=== PATIENT | female | born 1980 | race Caucasian/White ===

== ENCOUNTER 2016-11-29 09:57 | Inpatient (IN) | payer MEDICAID, OTHER ==
--- NOTE | 2016-11-29 10:06 | ED ---
General Adult HPI - General Stated complaint: Mental Health Time Seen by Provider: 11/29/16 09:59 Source: patient, police, EMS, RN notes reviewed Mode of arrival: EMS Limitations: no limitations - History of Present Illness Initial comments: Patient is a pleasant 36-year-old female presenting to the emergency department with depression. Patient states she did recently have suicidal ideation however no longer does. Patient does admit to stating these thoughts to another person. Patient denies homicidal thoughts. Patient had 2 shots of alcohol this morning. No drug use other than marijuana. No hallucinations. No physical complaints. Patient does have a history of previous suicide attempt. - Related Data Home Medications Medication Instructions Recorded Confirmed ALPRAZolam [Xanax] 1 mg PO BID 11/29/16 11/29/16 Aclidinium [place] [Tudorza 1 puff PO RT-BID 11/29/16 11/29/16 Pressair] Albuterol Inhaler [Ventolin Hfa 2 puff INHALATION RT-Q4H PRN 11/29/16 11/29/16 Inhaler] Buta/APAP/Caf/Cod [id number] 1 cap PO QID PRN 11/29/16 11/29/16 [Fioricet w/Cod 77-076-67-30MG] Escitalopram Oxalate [Lexapro] 20 mg PO DAILY 11/29/16 11/29/16 SUMAtriptan SUCCINATE [Imitrex] 100 mg PO DAILY PRN 11/29/16 11/29/16 Previous Rx's Medication Instructions Recorded traZODone HCL 100 mg PO HS #30 tab 09/04/13 Allergies Allergy/AdvReac Type Severity Reaction Status Date / Time Sulfa (Sulfonamide Allergy Anaphylaxis Verified 11/29/16 12:23 Antibiotics) Blueberries Allergy Unknown Unknown Uncoded 09/02/13 15:17 Review of Systems ROS Statement: Those systems with pertinent positive or pertinent negative responses have been documented in the HPI. ROS Other: All systems not noted in ROS Statement are negative. Constitutional: Denies: fever Eyes: Denies: eye pain ENT: Denies: ear pain Respiratory: Denies: cough Cardiovascular: Denies: chest pain Endocrine: Denies: fatigue Gastrointestinal: Denies: abdominal pain Genitourinary: Denies: dysuria Musculoskeletal: Denies: back pain Skin: Denies: rash Neurological: Denies: headache Psychiatric: Reports: depression Past Medical History Past Medical History: Cancer, COPD Additional Past Medical History / Comment(s): Migraines, chronic back pain. Cervical and ovarian CA 8 years ago, had cryo surgery did not have chemotherapy. History of Any Multi-Drug Resistant Organisms: None Reported Past Surgical History: Orthopedic Surgery Additional Past Surgical History / Comment(s): D&C. Had to have left ankle re- set. Past Anesthesia/Blood Transfusion Reactions: No Reported Reaction Past Psychological History: Anxiety, Depression, PTSD Smoking Status: Current every day smoker Past Alcohol Use History: Occasional Past Drug Use History: Marijuana Additional Drug Use History / Comment(s): However, pt states she buys 'zanies' from friends. - Past Family History Mother Family Medical History: Asthma, Coronary Artery Disease (CAD), Hypertension, Rheumatoid Arthritis (RA) Additional Family Medical History / Comment(s): gout, depression and anxiety. Father Family Medical History: Coronary Artery Disease (CAD), Diabetes Mellitus, Hypertension Additional Family Medical History / Comment(s): Hepatitis C from a blood transfusion. General Exam Limitations: no limitations General appearance: alert, in no apparent distress Head exam: Present: atraumatic Eye exam: Present: normal appearance, PERRL ENT exam: Present: normal oropharynx Neck exam: Present: normal inspection Respiratory exam: Present: normal lung sounds bilaterally Cardiovascular Exam: Present: regular rate, normal rhythm GI/Abdominal exam: Present: soft. Absent: tenderness Extremities exam: Present: normal inspection Neurological exam: Present: alert Psychiatric exam: Present: depressed Skin exam: Present: normal color Course Vital Signs 11/29/16 10:10 Temperature 98.2 F Pulse Rate 118 H Respiratory 20 Rate Blood Pressure 160/90 O2 Sat by Pulse 99 Oximetry Medical Decision Making - Medical Decision Making Patient seen by mental health services, who will admit. - Lab Data Lab Results 11/29/16 11/29/16 Range/Units 10:21 10:21 Urine HCG, Qual Not Detected (Not Detectd) Urine Opiates Screen Detected H (NotDetected) Ur Oxycodone Screen Not Detected (NotDetected) Urine Methadone Screen Not Detected (NotDetected) Ur Propoxyphene Screen Not Detected (NotDetected) Ur Barbiturates Screen Detected H (NotDetected) U Tricyclic Antidepress Not Detected (NotDetected) Ur Phencyclidine Scrn Not Detected (NotDetected) Ur Amphetamines Screen Not Detected (NotDetected) U Methamphetamines Scrn Not Detected (NotDetected) U Benzodiazepines Scrn Not Detected (NotDetected) Urine Cocaine Screen Not Detected (NotDetected) U Marijuana (THC) Screen Detected H (NotDetected) Disposition Clinical Impression: Depression Disposition: TRANSFER TO PSYCH HOSP/UNIT Referrals: None,Stated [Primary Care Provider] - 1-2 days Decision Time: 12:51
[2016-11-29] MEDS ORDERED: ACETAMINOPHEN TAB 500 MG TAB PO STA (13:32)
[2016-11-29] MEDS ORDERED: MAGNESIUM HYDROXIDE 2,400 MG/10 ML CUP PO PRN (14:27)
[2016-11-29] MEDS ORDERED: MAG HYDROX/AL HYDROX/SIMETH 30 ML CUP PO PRN (14:27)
[2016-11-29] MEDS ORDERED: ACETAMINOPHEN TAB 325 MG TAB PO PRN (14:27)
[2016-11-29] MEDS: NICOTINE 14MG/24HR PATCH TRANSDERM SCH (15:15)
[2016-11-29] MEDS: SUMAtriptan SUCCINATE 50 MG TAB PO PRN (15:39)
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
[2016-11-29] MEDS: ALBUTEROL INHALER 60 PUFF/8 GM INHALER INHALATION PRN ×2 (17:08→21:07)
[2016-11-29] MEDS: TIOTROPIUM 18 MCG/PUFF INHALER INHALATION SCH (17:08)
[2016-11-29] MEDS ORDERED: ALPRAZolam 0.5 MG TAB PO SCH (21:00)
[2016-11-29] MEDS ORDERED: traZODone HCL 100 MG TAB PO SCH (21:00)
[2016-11-29] MEDS: PRAZOSIN 1 MG CAP PO SCH (21:11)
[2016-11-29] MEDS: ESCITALOPRAM 20 MG TAB PO SCH (21:11)
[2016-11-30 06:38] VITALS: RESP 16
[2016-11-30] MEDS ORDERED: ESCITALOPRAM 20 MG TAB PO SCH (09:00)
[2016-11-30] MEDS: TIOTROPIUM 18 MCG/PUFF INHALER INHALATION SCH (09:32)
[2016-11-30] MEDS: ALBUTEROL INHALER 60 PUFF/8 GM INHALER INHALATION PRN ×4 (09:32→21:05)
[2016-11-30 09:40] LABS: Basophils # (A) 0.1 k/uL (0-0.2); Basophils % (A) 1 %; CHCM 34.4; Eosinophils # (A) 0.1 k/uL (0-0.7); Eosinophils % (A) 1 %; HCT 45.5 % (34.0-46.0); HDW 2.29; Luc # (Auto) 0.11; Luc % (Auto) 1; Lymphocytes % (A) 20 %; MCH 33.8 pg (25.0-35.0); MCHC 33.1 g/dL (31.0-37.0); MCV 102.3 fL (80.0-100.0); Macrocytosis Slight; Mean Platelet Volume 7.7; Monocytes # (A) 0.4 k/uL (0-1.0); Monocytes % (A) 4 %; Neutrophils # (A) 7.2 k/uL (1.3-7.7); Neutrophils % (A) 73 %; RBC 4.45 m/uL (3.80-5.40); WBC 9.9 k/uL (3.8-10.6); WBC (Perox) 10.03
[2016-11-30] MEDS: NICOTINE 14MG/24HR PATCH TRANSDERM SCH (09:43)
[2016-11-30 09:46] LABS: ALT 30 U/L (9-52); AST 23 U/L (14-36); Alkaline Phosphatase 73 U/L (38-126); Anion Gap 12 mmol/L; Blood Urea Nitrogen 6 mg/dL (7-17); Calcium 9.8 mg/dL (8.4-10.2); Carbon Dioxide 22 mmol/L (22-30); Chloride 108 mmol/L (98-107); Glucose 120 mg/dL (74-99); Non-African American GFR(MDRD) >60 (>60 ml/min/1.73 sqM); Potassium 3.9 mmol/L (3.5-5.1); Sodium 142 mmol/L (137-145); Total Bilirubin 0.8 mg/dL (0.2-1.3); Total Protein 8.2 g/dL (6.3-8.2)
[2016-11-30] MEDS: ARIPiprazole 2 MG TAB PO SCH (10:10)
[2016-11-30] MEDS: SUMAtriptan SUCCINATE 50 MG TAB PO PRN (10:11)
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
--- NOTE | 2016-11-30 13:58 | P.CONS ---
History of Present Illness - Reason for Consult Medical clearance. - History of Present Illness Patient is a pleasant 36-year-old female admitted to psychiatric floor for depression and suicidal ideation. Patient is a smoker and is comparing of cough without any sputum production patient denied any fever, chills, nausea, vomiting, abdominal pain, dysuria medicine was consulted for medical clearance. Patient is medical be stable at this time. Review of Systems REVIEW OF SYSTEMS: CONSTITUTIONAL: No fever, no malaise, no fatigue. HEENT: No recent visual problems or hearing problems. Denied any sore throat. CARDIOVASCULAR: No chest pain, orthopnea, PND, no palpitations, no syncope. PULMONARY: No shortness of breath, no cough, no hemoptysis. GASTROINTESTINAL: No diarrhea, no nausea, no vomiting, no abdominal pain. Normoactive bowel sounds. NEUROLOGICAL: No headaches, no weakness, no numbness. HEMATOLOGICAL: Denies any bleeding or petechiae. GENITOURINARY: Denies any burning micturition, frequency, or urgency. MUSCULOSKELETAL/RHEUMATOLOGICAL: Denies any joint pain, swelling, or any muscle pain. ENDOCRINE: Denies any polyuria or polydipsia. The rest of the 14-point review of systems is negative. Past Medical History Past Medical History: Cancer, COPD Additional Past Medical History / Comment(s): Migraines, chronic back pain. Cervical and ovarian CA 8 years ago, had cryo surgery did not have chemotherapy. History of Any Multi-Drug Resistant Organisms: None Reported Past Surgical History: Orthopedic Surgery Additional Past Surgical History / Comment(s): D&C. Had to have left ankle re- set. Past Anesthesia/Blood Transfusion Reactions: No Reported Reaction Past Psychological History: Anxiety, Depression, PTSD Smoking Status: Current every day smoker Past Alcohol Use History: Occasional Past Drug Use History: Marijuana Additional Drug Use History / Comment(s): However, pt states she buys 'zanies' from friends. - Past Family History Mother Family Medical History: Asthma, Coronary Artery Disease (CAD), Hypertension, Rheumatoid Arthritis (RA) Additional Family Medical History / Comment(s): gout, depression and anxiety. Father Family Medical History: Coronary Artery Disease (CAD), Diabetes Mellitus, Hypertension Additional Family Medical History / Comment(s): Hepatitis C from a blood transfusion. Medications and Allergies Home Medications Medication Instructions Recorded Confirmed Type traZODone HCL 100 mg PO HS #30 tab 09/04/13 11/29/16 Rx ALPRAZolam [Xanax] 1 mg PO BID 11/29/16 11/29/16 History Aclidinium [place] [Tudorza 1 puff PO RT-BID 11/29/16 11/29/16 History Pressair] Albuterol Inhaler [Ventolin Hfa 2 puff INHALATION RT-Q4H PRN 11/29/16 11/29/16 History Inhaler] Buta/APAP/Caf/Cod 41-809-96-30 1 cap PO QID PRN 11/29/16 11/29/16 History [Fioricet w/Cod 06-430-18-30MG] Escitalopram Oxalate [Lexapro] 20 mg PO DAILY 11/29/16 11/29/16 History SUMAtriptan SUCCINATE [Imitrex] 100 mg PO DAILY PRN 11/29/16 11/29/16 History Allergies Allergy/AdvReac Type Severity Reaction Status Date / Time Sulfa (Sulfonamide Allergy Anaphylaxis Verified 11/29/16 12:23 Antibiotics) Blueberries Allergy Unknown Unknown Uncoded 09/02/13 15:17 Physical Exam Vitals: Vital Signs Temp Pulse Resp BP Pulse Ox 11/30/16 06:37 98.1 F 100 16 149/80 11/29/16 14:39 98.3 F 94 15 137/80 99 PHYSICAL EXAMINATION: GENERAL: The patient is alert and oriented x3, not in any acute distress. Well developed, well nourished. HEENT: Pupils are round and equally reacting to light. EOMI. No scleral icterus. No conjunctival pallor. Normocephalic, atraumatic. No pharyngeal erythema. No thyromegaly. CARDIOVASCULAR: S1 and S2 present. No murmurs, rubs, or gallops. PULMONARY: Chest is clear to auscultation, no wheezing or crackles. ABDOMEN: Soft, nontender, nondistended, normoactive bowel sounds. No palpable organomegaly. MUSCULOSKELETAL: No joint swelling or deformity. EXTREMITIES: No cyanosis, clubbing, or pedal edema. NEUROLOGICAL: Gross neurological examination did not reveal any focal deficits. SKIN: No rashes. Results CBC & Chem 7: 11/30/16 09:07 11/30/16 09:07 Labs: Abnormal Lab Results - Last 24 Hours (Table) 11/30/16 11/30/16 Range/Units 09:07 09:07 MCV 102.3 H (80.0-100.0) fL Chloride 108 H (98-107) mmol/L BUN 6 L (7-17) mg/dL Glucose 120 H (74-99) mg/dL Assessment and Plan Plan: #1 cough without any sputum production: Secondary to smoking I do not believe patient has and Bactrim bronchitis and antibiotics are necessary at this point of time. Smoking cessation counseling was provided #2 nicotine abuse next and #3 marijuana use: Counseling was provided #4 severe depression and suicidal ideation management as per primary service Thank you for letting me participate in this patient's care no further recommendations from medicine perspective will follow the patient on as-needed basis
[2016-11-30] MEDS: PRAZOSIN 1 MG CAP PO SCH (20:39)
[2016-11-30] MEDS: ESCITALOPRAM 20 MG TAB PO SCH (20:40)
[2016-12-01 06:09] VITALS: BP 130/78; PULSE 75; TEMP 98.2
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
[2016-12-01] MEDS: NICOTINE 14MG/24HR PATCH TRANSDERM SCH (09:22)
[2016-12-01] MEDS: ARIPiprazole 2 MG TAB PO SCH (09:22)
[2016-12-01] MEDS: ALBUTEROL INHALER 60 PUFF/8 GM INHALER INHALATION PRN (09:27)
[2016-12-01] MEDS: TIOTROPIUM 18 MCG/PUFF INHALER INHALATION SCH (09:27)
== END 2016-12-01 09:40 | disposition home or self-care (01) | DRG 885 ==
LOC: EC 09:57 → 3MHU 13:18
PROVIDERS: ADMIT Psychiatry & Neurology Psychiatry; ATTEND Psychiatry & Neurology Psychiatry
DX: F31.81 Bipolar II disorder (principal); R45.851 Suicidal ideations; J44.9 Chronic obstructive pulmonary disease, unspecified; F40.01 Agoraphobia with panic disorder; F17.200 Nicotine dependence, unspecified, uncomplicated; F12.90 Cannabis use, unspecified, uncomplicated; F43.10 Post-traumatic stress disorder, unspecified; G43.909 Migraine, unspecified, not intractable, without status migrainosus; Z62.810 Personal history of physical and sexual abuse in childhood; Z79.899 Other long term (current) drug therapy; Z81.8 Family history of other mental and behavioral disorders; Z82.49 Family history of ischemic heart disease and other diseases of the circulatory system; Z82.5 Family history of asthma and other chronic lower respiratory diseases; Z83.3 Family history of diabetes mellitus; Z85.43 Personal history of malignant neoplasm of ovary; Z91.410 Personal history of adult physical and sexual abuse; Z91.5 Personal history of self-harm; F51.5 Nightmare disorder; M54.9 Dorsalgia, unspecified; G89.29 Other chronic pain
CPT/HCPCS: 80053; 80306; 81025; 82075; 84443; 85025; 94640; 99285

== ENCOUNTER → 2018-01-11 | Outpatient (CLI) | payer OTHER ==
--- NOTE | 2018-01-12 09:30 | MM ---
Reason for exam: screening (asymptomatic). Baseline mammogram. History: Patient is nulliparous. Family history of breast cancer in maternal grandmother at age 45, breast cancer in paternal grandmother at age 45, and breast cancer in 2 maternal aunts at age 45. Took hormonal contraceptives for 2 years. Physical Findings: Nurse did not find any significant physical abnormalities on exam. MG 3D Screening Mammo W/Cad Bilateral CC and MLO view(s) were taken. The breast tissue is heterogeneously dense. This may lower the sensitivity of mammography. No suspicious calcifications are seen. There is no discrete abnormality. These results were verbally communicated with the patient and result sheet given to the patient on 01/11/18. ASSESSMENT: Negative, BI-RAD 1 RECOMMENDATION: Routine screening mammogram of both breasts in 1 year.
== END ==
LOC: RADMAMWWP 08:00
PROVIDERS: ATTEND Family Medicine
DX: Z12.31 Encounter for screening mammogram for malignant neoplasm of breast (principal)
CPT/HCPCS: 77063; 77067

== ENCOUNTER 2018-10-26 14:39 | Emergency (ER) | payer OTHER ==
[2018-10-26] MEDS ORDERED: LIDOCAINE 1% INJ 10MG/ML (20 ML MDV) SQ ONE (14:53)
[2018-10-26 14:54] VITALS: BP 130/84; RESP 18; TEMP 97.8
--- NOTE | 2018-10-26 15:08 | ED ---
Wound/Laceration HPI - General Chief Complaint: Wound/Laceration Stated Complaint: hand wrist laceration Time Seen by Provider: 10/26/18 14:51 Source: patient Mode of arrival: ambulatory - History of Present Illness Initial Comments: 38-year-old female who denies significant past medical history presenting today for chief complaint of right wrist laceration. Patient states she was attempting to close a window when her hand slipped pushing on the glass and her hand went through. She states that she has a laceration of the right wrist just proximal to the thumb base. Patient states there is a large amount of bleeding and she got a laceration many sutures and presents emergency department for evaluation. Patient states there is mostly large tonsil class denies small pie wander. Patient states she had a very tiny laceration from the glass at the tip of the right index finger. Patient denies any other areas of injury. Patient sates her tetanus up-to-date. Patient states she has no numbness tingling loss sensation, coolness or pallor of the extremity. - Related Data Home Medications Medication Instructions Recorded Confirmed Aclidinium [place] [Tudorza 1 puff PO RT-BID 11/29/16 11/29/16 Pressair] Albuterol Inhaler [Ventolin Hfa 2 puff INHALATION RT-Q4H PRN 11/29/16 11/29/16 Inhaler] Buta/APAP/Caf/Cod [id number] 1 cap PO QID PRN 11/29/16 11/29/16 [Fioricet w/Cod 33-658-88-30MG] SUMAtriptan SUCCINATE [Imitrex] 100 mg PO DAILY PRN 11/29/16 11/29/16 Previous Rx's Medication Instructions Recorded ARIPiprazole [Abilify] 0.5 mg PO DAILY #10 tab 12/01/16 Escitalopram Oxalate [Lexapro] 20 mg PO DAILY #14 12/01/16 Prazosin [Minipress] 1 mg PO HS #14 cap 12/01/16 Allergies Allergy/AdvReac Type Severity Reaction Status Date / Time Sulfa (Sulfonamide Allergy Anaphylaxis Verified 11/29/16 12:23 Antibiotics) Blueberries Allergy Unknown Unknown Uncoded 09/02/13 15:17 Review of Systems ROS Statement: Those systems with pertinent positive or pertinent negative responses have been documented in the HPI. ROS Other: All systems not noted in ROS Statement are negative. Past Medical History Past Medical History: Cancer, COPD Additional Past Medical History / Comment(s): Migraines, chronic back pain. Cervical and ovarian CA 8 years ago, had cryo surgery did not have chemotherapy. History of Any Multi-Drug Resistant Organisms: None Reported Past Surgical History: Orthopedic Surgery Additional Past Surgical History / Comment(s): D&C. Had to have left ankle re- set. Past Anesthesia/Blood Transfusion Reactions: No Reported Reaction Past Psychological History: Anxiety, Depression, PTSD Smoking Status: Current every day smoker Past Alcohol Use History: Occasional Past Drug Use History: Marijuana - Past Family History Mother Family Medical History: Asthma, Coronary Artery Disease (CAD), Hypertension, Rheumatoid Arthritis (RA) Additional Family Medical History / Comment(s): gout, depression and anxiety. Father Family Medical History: Coronary Artery Disease (CAD), Diabetes Mellitus, Hypertension Additional Family Medical History / Comment(s): Hepatitis C from a blood transfusion. General Exam - General Exam Comments Initial Comments: General: The patient is awake and alert, in no distress, and does not appear acutely ill. Eye: Pupils are equal, round and reactive to light, extra-ocular movements are intact. No nystagmus. There is normal conjunctiva bilaterally. No signs of icterus. Cardiovascular: There is a regular rate and rhythm. No murmur, rub or gallop is appreciated. Respiratory: Lungs are clear to auscultation, respirations are non-labored, breath sounds are equal. No wheezes, stridor, rales, or rhonchi. Musculoskeletal: Normal ROM, no tenderness. Strength 5/5. Sensation intact. Radial pulses equal bilaterally 2+. Neurological: A&O x 3. CN II-XII intact, There are no obvious motor or sensory deficits. Coordination appears grossly intact. Speech is normal. Skin: Skin is warm and dry and no rashes. 3 cm laceration of the proximal thenar eminence, skin flap. no evidence of FB. No evidence of exposed tendon. actively bleeding. Full range of motion at the MTP DIP PIP joints of all 5 digits of the hands bilaterally. Full sensation proximal distal to injury site. Capillary refill less than 3 seconds of the affected digit. Psychiatric: Cooperative, appropriate mood & affect, normal judgment. Course Vital Signs 10/26/18 10/26/18 14:51 16:48 Temperature 97.8 F Pulse Rate 118 H 94 Respiratory 18 18 Rate Blood Pressure 130/84 O2 Sat by Pulse 98 98 Oximetry Procedures - Laceration Laceration #1 Consent Obtained: verbal consent Indication: laceration Site: hand Size (cm): 3 Description: flap, irregular Depth: simple, single layer Anesthetic Used: lidocaine 1% Anesthesia Technique: local infiltration Amount (mls): 3 Pre-repair: wound explored, irrigated extensively, deep structures intact Type of Sutures: nylon Size of Sutures: 4-0 Number of Sutures: 5 Technique: simple, interrupted Patient Tolerated Procedure: well, no complications Medical Decision Making - Medical Decision Making 38-year-old female presenting for hand laceration. Imaging studies reveal no evidence of foreign body no obvious foreign body of physical examination. Patient states her tetanus is up-to-date. Active bleeding on arrival. Once bleeding controlled with pressure. Wound irrigated, wound edges approximated. Patient tolerated procedure well. Patient neurovascularly intact both prior to and after procedure. Bleeding remaining controlled. At this time feel patient stiff discharge with return parameters for suture removal and signs of infection. Patient verbalized understanding and was discharged appearing well Disposition Clinical Impression: Hand laceration Disposition: HOME SELF-CARE Condition: Good Instructions (If sedation given, give patient instructions): Care For Your Stitches (ED), Laceration (ED) Additional Instructions: Please use medication as discussed. Please follow-up for suture removal in 7-10 days. Please return to emergency room if the symptoms increase or worsen or for any other concerns. Is patient prescribed a controlled substance at d/c from ED?: No Referrals: Juancarlos Hansen MD [Primary Care Provider] - 1-2 days Time of Disposition: 16:41
--- NOTE | 2018-10-26 15:21 | XR ---
EXAMINATION TYPE: XR hand complete RT DATE OF EXAM: 10/26/2018 COMPARISON: NONE HISTORY: Laceration near 1st metacarpal TECHNIQUE: Three views are submitted. FINDINGS: The osseous structures are intact. The joint spaces are preserved and there is no acute fracture or dislocation. No radiopaque foreign body identified. IMPRESSION: 1. No definite acute fracture or dislocation if symptoms persist, follow-up study in 7 to 10 days wo uld be suggested
[2018-10-26 16:49] VITALS: PULSE 94
== END 2018-10-26 16:49 | disposition home or self-care (01) ==
LOC: EC 14:39
DX: S61.411A Laceration without foreign body of right hand, initial encounter (principal); J44.9 Chronic obstructive pulmonary disease, unspecified; F17.200 Nicotine dependence, unspecified, uncomplicated; Z88.2 Allergy status to sulfonamides; Z91.018 Allergy to other foods; Z79.899 Other long term (current) drug therapy; Z85.41 Personal history of malignant neoplasm of cervix uteri; Z85.43 Personal history of malignant neoplasm of ovary; Z98.890 Other specified postprocedural states; W25.XXXA Contact with sharp glass, initial encounter; Y93.89 Activity, other specified
CPT/HCPCS: 73130; 99283; 12002; J2001

== ENCOUNTER → 2022-11-22 | Outpatient (CLI) | payer OTHER ==
--- NOTE | 2022-11-23 22:24 | MM ---
Reason for Exam: Screening (asymptomatic). Last mammogram was performed 4 year(s) and 11 month(s) ago. Patient History: Menarche at age 9. Patient has no children. Patient used Hormonal Contraceptives for 2 years. Paternal grandmother had breast cancer, age 45. Maternal grandmother had breast cancer, age 45. Maternal aunt had breast cancer, age 45. Maternal aunt had breast cancer, age 45. Risk Values: Zakia 5 year model risk: 0.8%. NCI Lifetime model risk: 11.9%. Prior Study Comparison: 01/11/2018 Bilateral Screening Mammogram, [facility]. Tissue Density: There are scattered fibroglandular densities. Findings: Analyzed By CAD. Unchanged bilateral asymmetric densities. There is no suspicious group of microcalcifications or new suspicious mass in either breast. Overall Assessment: Benign, BI-RAD 2 Management: Screening Mammogram of both breasts in 1 year. . Patient should continue monthly self-breast exams. A clinical breast exam by your physician is recommended on an annual basis. This exam should not preclude additional follow-up of suspicious palpable abnormalities. Note on Zakia scores and lifetime risk: 1. A Zakia score greater than 3% is considered moderate risk. If this is the case, consider specialist referral to assess eligibility for a risk reducing agent. 2. If overall lifetime risk for the development of breast cancer is 20% or higher, the patient may qualify for future screening with alternating mammogram and breast MRI. Electronically signed and approved by: Quinton Ashton M.D. Radiologist
== END | disposition home or self-care (01) ==
LOC: RADMAMWWP 14:52
PROVIDERS: ATTEND Family Medicine
DX: Z12.31 Encounter for screening mammogram for malignant neoplasm of breast (principal); Z80.3 Family history of malignant neoplasm of breast
CPT/HCPCS: 77067

== ENCOUNTER → 2023-12-22 | Outpatient (CLI) | payer OTHER ==
--- NOTE | 2023-12-26 08:45 | MM ---
Reason for Exam: Screening (asymptomatic). Last mammogram was performed 1 year(s) and 1 month(s) ago. Patient History: Menarche at age 9. Patient has no children. Patient used Hormonal Contraceptives for 2 years. Paternal grandmother had breast cancer, age 45. Maternal grandmother had breast cancer, age 45. Maternal aunt had breast cancer, age 45. Maternal aunt had breast cancer, age 45. Risk Values: Zakia 5 year model risk: 0.9%. NCI Lifetime model risk: 11.8%. Prior Study Comparison: 01/11/2018 Bilateral Screening Mammogram, [facility]. 11/22/2022 Bilateral MG screening mammo w CAD, [facility]. Tissue Density: There are scattered areas of fibroglandular density. Findings: Analyzed By CAD. Right breast: There is no suspicious group of microcalcifications or new suspicious mass. Left breast: There is no suspicious group of microcalcifications or new suspicious mass. Overall Assessment: Negative, BI-RAD 1 Management: Screening Mammogram of both breasts in [address] [facility] will attempt to contact patient to return for supplemental views and ultrasound if indicated. Patient should continue monthly self-breast exams. A clinical breast exam by your physician is recommended on an annual basis. This exam should not preclude additional follow-up of suspicious palpable abnormalities. Note on Zakia scores and lifetime risk: 1. A Zakia score greater than 3% is considered moderate risk. If this is the case, consider specialist referral to assess eligibility for a risk reducing agent. 2. If overall lifetime risk for the development of breast cancer is 20% or higher, the patient may qualify for future screening with alternating mammogram and breast MRI. [facility], , 12/26/2023 8:42 AM. Electronically signed and approved by: Kwasi Tracy DO
== END | disposition home or self-care (01) ==
LOC: RADMAMWWP 15:32
PROVIDERS: ATTEND Family Medicine
DX: Z80.3 Family history of malignant neoplasm of breast
CPT/HCPCS: 77067

== ENCOUNTER 2024-10-11 01:13 | Emergency (ER) | payer OTHER ==
--- NOTE | 2024-10-11 01:56 | ED ---
General Adult HPI - General Chief complaint: Extremity Injury, Upper Stated complaint: Pain in Hands Time Seen by Provider: 10/11/24 01:55 Source: patient, RN notes reviewed Mode of arrival: ambulatory Limitations: no limitations - History of Present Illness Initial comments: 44-year-old female presented to the ER for evaluation of right fingertip discoloration. Patient reports yesterday she started experiencing a prickly/tingling discomfort to her right fingertips. She states throughout the day this progressively worsened into her hand. She also notes dark discoloration to fingertips starting today along with increase of pain and more proximally spreading tingling sensation. She does report today she also started experiencing a similar tingling/prickling sensation to her left fingertips. She denies any injuries or traumas to bilateral upper extremities no neck pain. She denies a history of DVTs and is not currently on any blood thinning medications. Patient does smoke marijuana. Nondiabetic. Patient reports painful range of motion. She denies any fevers or chills. - Related Data Home Medications Medication Instructions Recorded Confirmed Aclidinium [place] [Tudorza 1 puff PO RT-BID 11/29/16 11/29/16 Pressair] Albuterol Inhaler [Ventolin Hfa 2 puff INHALATION RT-Q4H PRN 11/29/16 11/29/16 Inhaler] Buta/APAP/Caf/Cod [id number] 1 cap PO QID PRN 11/29/16 11/29/16 [Fioricet w/Cod [id number]] SUMAtriptan succinate [Imitrex] 100 mg PO DAILY PRN 11/29/16 11/29/16 Previous Rx's Medication Instructions Recorded ARIPiprazole [Abilify] 0.5 mg PO DAILY #10 tab 12/01/16 Escitalopram Oxalate [Lexapro] 20 mg PO DAILY #14 12/01/16 Prazosin [Minipress] 1 mg PO HS #14 cap 12/01/16 Allergies Allergy/AdvReac Type Severity Reaction Status Date / Time Sulfa (Sulfonamide Allergy Anaphylaxis Verified 11/29/16 12:23 Antibiotics) Blueberries Allergy Unknown Unknown Uncoded 09/02/13 15:17 Review of Systems ROS Statement: Those systems with pertinent positive or pertinent negative responses have been documented in the HPI. ROS Other: All systems not noted in ROS Statement are negative. Past Medical History Past Medical History: Cancer, COPD Additional Past Medical History / Comment(s): Migraines, chronic back pain. Cervical and ovarian CA 8 years ago, had cryo surgery did not have chemotherapy. History of Any Multi-Drug Resistant Organisms: None Reported Past Surgical History: Orthopedic Surgery Additional Past Surgical History / Comment(s): D&C. Had to have left ankle re- set. Past Anesthesia/Blood Transfusion Reactions: No Reported Reaction Past Psychological History: Anxiety, Depression, PTSD Smoking Status: Former smoker Past Alcohol Use History: Occasional Past Drug Use History: Marijuana - Past Family History Mother Family Medical History: Asthma, Coronary Artery Disease (CAD), Hypertension, Rheumatoid Arthritis (RA) Additional Family Medical History / Comment(s): gout, depression and anxiety. Father Family Medical History: Coronary Artery Disease (CAD), Diabetes Mellitus, Hypertension Additional Family Medical History / Comment(s): Hepatitis C from a blood transfusion. General Exam Limitations: no limitations General appearance: alert, in no apparent distress Neck exam: Present: normal inspection. Absent: tenderness, meningismus, lymphadenopathy Respiratory exam: Present: normal lung sounds bilaterally. Absent: respiratory distress, wheezes, rales, rhonchi, stridor Cardiovascular Exam: Present: regular rate, normal rhythm, normal heart sounds. Absent: systolic murmur, diastolic murmur, rubs, gallop, clicks Extremities exam: Present: tenderness (Tenderness to finger pads. Right 4th and 1st digits are cool to touch. There is a dark purple discoloration to right finger pads most prominent in right fourth digit. Sluggish cap refill to right fourth digit. Limited with full active range of motion given pain. Left finger pads mildly erythema), other (2+ bilateral radial pulses. Contusion right anterior forearm) Neurological exam: Present: alert, oriented X3, CN II-XII intact Skin exam: Present: warm, dry, intact, normal color. Absent: rash Course Vital Signs 10/11/24 10/11/24 01:22 03:51 Temperature 97.5 F L 97.7 F Pulse Rate 89 80 Respiratory 16 17 Rate Blood Pressure 130/91 125/79 O2 Sat by Pulse 97 98 Oximetry EKG Findings - EKG Comments: EKG Findings:: EKG taken at 2: 16 showing a sinus rhythm with occasional PVC. No ST segment elevations. Ventricular rate 75, NE interval 182, QRS duration 77, QT/QTc 360/388. Medical Decision Making - Medical Decision Making Was pt. sent in by a medical professional or institution (, PA, [facility]NA[facility], urgent care, hospital, or long-term...) When possible be specific @ -No Did you speak to anyone other than the patient for history (EMS, parent, family, police, friend...)? What history was obtained from this source @ -No Did you review nursing and triage notes (agree or disagree)? Why? @ -I reviewed and agree with nursing and triage notes Were old charts reviewed (outside hosp., previous admission, EMS record, old EKG, old radiological studies, urgent care reports/EKG's, long-term records)? Report findings @ -No old charts were reviewed Differential Diagnosis (chest pain, altered mental status, abdominal pain women, abdominal pain men, vaginal bleeding, weakness, fever, dyspnea, syncope, headache, dizziness, GI bleed, back pain, seizure, CVA, palpatations, mental health, musculoskeletal)? @ -Differential Musculoskeletal: Muscular strain, contusion, ligament sprain, fracture, arthritis, septic arthritis, bursitis, cellulitis, muscle spasm, nerve compression, DVT, arterial occlusion, herpes zoster, electrolyte abnormality, tumor.... This is not meant to be in all inclusive list EKG interpreted by me (3pts min.). @ -As above X-rays interpreted by me (1pt min.). @ -None done CT interpreted by me (1pt min.). @ -None done U/S interpreted by me (1pt. min.). @ -None done What testing was considered but not performed or refused? (CT, X-rays, U/S, labs)? Why? @ -None What meds were considered but not given or refused? Why? @ -None Did you discuss the management of the patient with other professionals (professionals i.e. , [employer], [facility], lab, RT, psych nurse, social media analyst, scan coordinator, teacher, tax revenue officer, correctional case manager)? Give summary @ -No Was smoking cessation discussed for >3mins.? @ -I discussed smoking cessation for greater than 3 minutes. The risk of smoking were discussed with the patient including but not limited to risks of cancer, stroke, coronary artery disease and COPD. Also discussed with patient were multiple methods of quitting smoking. Lastly we discussed the financial cost of smoking. Was critical care preformed (if so, how long)? @ -No Were there social determinants of health that impacted care today? How? (Homelessness, low income, unemployed, alcoholism, drug addiction, transportation, low edu. Level, literacy, decrease access to med. care, group home, rehab)? @ -No Was there de-escalation of care discussed even if they declined (Discuss DNR or withdrawal of care, Hospice)? DNR status @ -No What co-morbidities impacted this encounter? (DM, HTN, Smoking, COPD, CAD, Cancer, CVA, ARF, Chemo, Hep., AIDS, mental health diagnosis, sleep apnea, morbid obesity)? @ -None Was patient admitted / discharged? Hospital course, mention meds given and route, prescriptions, significant lab abnormalities, going to OR and other pertinent info. @ -Discharge. 44-year-old female presented the ER for evaluation of finger pain and discoloration. Upon arrival vital signs stable. Patient in no signs of acute distress nontoxic-appearing. Patient is neurovascularly intact. Exam remarkable for dark purple discoloration to right finger pads right 4th and 1st finger pads are cool to touch. Sluggish cap refill right fourth digit. La boratories obtained remarkable for WBC of 17.5 with a left shift. This is likely due to recent steroid use as patient reports she has been on multiple rounds of steroids given upper respiratory infections and pneumonia. D-dimer - 0.26. CRP 0.8. EKG showed a sinus rhythm occasional PVC. patient provided with symptomatic treatment in the emergency department. Upon reevaluation, examination of the right fingers has improvement of discoloration to normal skin tone right fourth digit is warm to touch and patient remained neurovascularly intact. Possibly Raynaud's syndrome. Patient educated on today's findings, all questions answered. I advised smoking cessation and close follow-up with PCP. Strict return parameters discussed. Patient discharged in stable condition. Patient verbally expressed understanding agree with care plan. Case discussed with ED attending, Dr. Aj Undiagnosed new problem with uncertain prognosis? @ -No Drug Therapy requiring intensive monitoring for toxicity (Heparin, Nitro, Insulin, Cardizem)? @ -No Were any procedures done? @ -No Diagnosis/symptom? @ -Finger pain/finger discoloration Acute, or Chronic, or Acute on Chronic? @ -Acute Uncomplicated (without systemic symptoms) or Complicated (systemic symptoms)? @ -Uncomplicated Side effects of treatment? @ -No Exacerbation, Progression, or Severe Exacerbation? @ -No Poses a threat to life or bodily function? How? (Chest pain, [place], [place], pneumonia, PE, COPD, DKA, ARF, appy, cholecystitis, CVA, Diverticulitis, Homicidal, Suicidal, threat to staff... and all critical care pts) @ -No - Lab Data Result diagrams: 10/11/24 02:23 10/11/24 02:23 Lab Results 10/11/24 10/11/24 10/11/24 Range/Units 02:23 02:23 02:23 WBC 17.50 H (4.50-10.00) 10*3/uL RBC 4.42 (4.10-5.20) 10*6/uL Hgb 14.8 (12.0-15.0) g/dL Hct 43.6 (37.2-46.3) % MCV 98.6 H (80.0-97.0) fL MCH 33.5 H (27.0-32.0) pg MCHC 33.9 (32.0-37.0) g/dL Plt Count 308 (140-440) 10*3/uL MPV 10.2 (9.5-12.2) fL Immature Gran % (Auto) 3.1 % Neutrophils % (Manual) 63 % Band Neuts % (Manual) 4 % Lymphocytes % (Manual) 29 % Monocytes % (Manual) 4 % Immature Gran # 0.54 H (0.00-0.04) 10*3/uL Neutrophils # (Manual) 11.72 H (1.3-7.7) k/uL Lymphocytes # (Manual) 5.08 H (1.0-4.8) k/uL Monocytes # (Manual) 0.70 (0-1.0) k/uL Nucleated RBCs 0 (0-0) /100 WBC Manual Slide Review Performed D-Dimer 0.26 (<0.60) mg/L FEU Sodium 138 (137-145) mmol/L Potassium 3.5 (3.5-5.1) mmol/L Chloride 107 (98-107) mmol/L Carbon Dioxide 22 (22-30) mmol/L Anion Gap 9 mmol/L BUN 16 (7-17) mg/dL Creatinine 0.89 (0.52-1.04) mg/dL Est GFR (CKD-EPI)AfAm >90 (>60 ml/min/1.73 sqM) Est GFR (CKD-EPI)NonAf 79 (>60 ml/min/1.73 sqM) Glucose 98 (74-99) mg/dL Calcium 8.8 (8.4-10.2) mg/dL Magnesium 2.1 (1.6-2.3) mg/dL Total Bilirubin 0.2 (0.2-1.3) mg/dL AST 14 (14-36) U/L ALT 11 (4-34) U/L Alkaline Phosphatase 48 (38-126) U/L C-Reactive Protein 0.8 (<1.0) mg/dL Total Protein 5.4 L (6.3-8.2) g/dL Albumin 3.3 L (3.5-5.0) g/dL Disposition Clinical Impression: Hand pain, Discoloration of skin of hand Disposition: HOME SELF-CARE Condition: Stable Instructions (If sedation given, give patient instructions): Raynaud Disease (ED) Additional Instructions: Follow-up with PCP. Return to the ER for any new or worse or concerns. Is patient prescribed a controlled substance at d/c from ED?: No Referrals: Rohit Malloy MD [Primary Care Provider] - 1-2 days Time of Disposition: 04:11
[2024-10-11 02:57] LABS: HCT 43.6 % (37.2-46.3); HGB 14.8 g/dL (12.0-15.0); MCH 33.5 pg (27.0-32.0); MCHC 33.9 g/dL (32.0-37.0); MCV 98.6 fL (80.0-97.0); Platelet Count 308 10*3/uL (140-440); RBC 4.42 10*6/uL (4.10-5.20); RDW 14.1 % (11.5-14.5); WBC 17.50 10*3/uL (4.50-10.00)
[2024-10-11 03:26] LABS: ALT 11 U/L (4-34); AST 14 U/L (14-36); African American GFR (CKD) >90 (>60 ml/min/1.73 sqM); Albumin 3.3 g/dL (3.5-5.0); Alkaline Phosphatase 48 U/L (38-126); Anion Gap 9 mmol/L; Blood Urea Nitrogen 16 mg/dL (7-17); Calcium 8.8 mg/dL (8.4-10.2); Carbon Dioxide 22 mmol/L (22-30); Chloride 107 mmol/L (98-107); Glucose 98 mg/dL (74-99); Magnesium 2.1 mg/dL (1.6-2.3); Non-African American GFR(CKD) 79 (>60 ml/min/1.73 sqM); Potassium 3.5 mmol/L (3.5-5.1); Sodium 138 mmol/L (137-145); Total Protein 5.4 g/dL (6.3-8.2)
[2024-10-11 03:32] LABS: Lymphocytes # (M) 5.08 k/uL (1.0-4.8); Monocytes # (M) 0.70 k/uL (0-1.0); Neutrophils # (M) 11.72 k/uL (1.3-7.7); Neutrophils % (M) 63 %; Total Cells Counted 100
[2024-10-11 03:52] VITALS: BP 125/79; PULSE 80; RESP 17; TEMP 97.7
[2024-10-11] MEDS: HYDROcodone/APAP 5-325MG 1 EACH TAB PO STA (04:22)
== END 2024-10-11 04:30 | disposition home or self-care (01) ==
LOC: EC 01:13
DX: M79.641 Pain in right hand (principal); L81.9 Disorder of pigmentation, unspecified; Z87.891 Personal history of nicotine dependence; Z88.1 Allergy status to other antibiotic agents; Z88.2 Allergy status to sulfonamides
CPT/HCPCS: 36415; 80053; 83735; 85025; 85379; 86140; 93005; 99283